=== PATIENT | male | born 1985 | race Caucasian/White ===

== ENCOUNTER 2024-03-04 08:53 | Inpatient (IN) | payer OTHER ==
[2024-03-04] MEDS ORDERED: MAG HYDROX/AL HYDROX/SIMETH 30 ML UNIT-DOSE CUP PO PRN (10:37)
[2024-03-04] MEDS ORDERED: NALOXONE (NARCAN) HCL 4 MG/0.1 ML SPRAY NS PRN (10:37)
[2024-03-04] MEDS ORDERED: LOPERAMIDE HCL 2 MG CAPSULE PO PRN (10:37)
[2024-03-04] MEDS ORDERED: ACETAMINOPHEN 325 MG TABLET (FP) PO PRN (10:37)
[2024-03-04] MEDS ORDERED: BISMUTH SUBSALICYLATE 262 MG/15 ML BTL PO PRN (10:37)
[2024-03-04] MEDS ORDERED: DICYCLOMINE HCL 10 MG CAPSULE PO PRN (10:37)
[2024-03-04] MEDS ORDERED: POLYETHYLENE GLYCOL (HEALTHYLAX) 3350 17 GM PACKET PO PRN (10:37)
[2024-03-04] MEDS ORDERED: BENZOCAINE/MENTHOL (CHLORASEPTIC ) LOZENGE MM PRN (10:37)
[2024-03-04] MEDS ORDERED: IBUPROFEN 400 MG TABLET (FP) PO PRN (10:37)
[2024-03-04] MEDS ORDERED: guaiFENesin 600 MG TABLET.ER (FP) PO PRN (10:37)
[2024-03-04] MEDS ORDERED: BENZONATATE 200 MG CAPSULE PO PRN (10:37)
[2024-03-04] MEDS ORDERED: ONDANSETRON *ODT* 4 MG TABLET SL PRN (10:37)
[2024-03-04] MEDS ORDERED: NICOTINE 7 MG/24 HOURS TOPICAL PATCH TD ONE (11:47)
[2024-03-04] MEDS ORDERED: PRENATAL VITAMINS W/ FOLIC ACID TABLET (FP) PO ONE (11:47)
[2024-03-04] MEDS: NICOTINE 7 MG/24 HOURS TOPICAL PATCH TD SCH (11:49)
[2024-03-04] MEDS: PRENATAL VITAMINS W/ FOLIC ACID TABLET (FP) PO SCH (11:49)
[2024-03-04] MEDS: methaDONE HCL 10 MG TABLET PO ONE (11:50)
[2024-03-04] MEDS: cloNIDine HCL 0.1 MG TABLET PO SCH (13:22)
[2024-03-04] MEDS: MELATONIN 5 MG TABLETS PO SCH (22:36)
[2024-03-04] MEDS: METHOCARBAMOL 500 MG TABLET PO PRN (22:36)
[2024-03-04] MEDS: hydrOXYzine PAMOATE 25 MG CAPSULE (FP) PO PRN (22:36)
[2024-03-04] MEDS: THIAMINE 100 MG TABLET PO SCH (22:36)
[2024-03-05] MEDS: methaDONE 40 MG, methaDONE 20 MG PO SCH (05:27)
[2024-03-05] MEDS ORDERED: methaDONE HCL 10 MG TABLET PO SCH (06:00)
[2024-03-05] MEDS ORDERED: methaDONE 40 MG, methaDONE 30 MG PO ONE (06:00)
[2024-03-05] MEDS: methaDONE HCL 10 MG TABLET PO ONE (09:27)
[2024-03-05] MEDS: NICOTINE 21 MG/24 HOURS TOPICAL PATCH TD SCH (09:27)
[2024-03-05] MEDS: IBUPROFEN 600 MG TABLET (FP) PO PRN (09:30)
[2024-03-05] MEDS ORDERED: methaDONE HCL 10 MG TABLET PO ONE (10:00)
[2024-03-05] MEDS: LIDOCAINE 4% PATCH TP SCH (10:58)
[2024-03-05 12:03] LABS: HEMATOCRIT 41.7 % (35.4-49); HEMOGLOBIN 14.1 GM/dL (11.7-16.9); MCH 29.5 pg (25.7-33.7); MCHC 33.8 g/dl (32.0-35.9); MEAN CELL VOLUME 87.2 fl (80-96); MEAN PLT VOLUME 9.8 fl (7.5-11.1); PLATELET COUNT 220 10^3/uL (134-434); RBC 4.78 M/mm3 (4.00-5.60); RDW 13.9 % (11.9-15.9); WHITE BLOOD COUNT 11.3 K/mm3 (4.0-10.0)
[2024-03-05 12:28] LABS: POTASSIUM 4.3 mmol/L (3.5-5.1)
[2024-03-05 12:30] LABS: CALCIUM 9.2 mg/dL (8.5-10.1)
[2024-03-05 12:31] LABS: ALBUMIN 3.7 g/dl (3.4-5.0); BLOOD UREA NITROGEN 15.6 mg/dL (7-18)
[2024-03-05 12:34] LABS: CREATININE 0.8 mg/dL (0.55-1.3)
[2024-03-05 12:36] LABS: BILIRUBIN,TOTAL 0.4 mg/dL (0.2-1); TOT PROT 6.6 g/dl (6.4-8.2)
[2024-03-05] MEDS: NICOTINE POLACRILEX 2 MG GUM BC PRN (13:20)
[2024-03-05] MEDS: SUVOREXANT 10 MG TABLET PO PRN (22:09)
[2024-03-05] MEDS: LIDOCAINE PATCH REMOVAL MC SCH (22:10)
[2024-03-06] MEDS ORDERED: cloNIDine HCL 0.1 MG TABLET PO PRN
[2024-03-06] MEDS: methaDONE HCL 10 MG TABLET PO ONE (09:58)
[2024-03-06] MEDS ORDERED: methaDONE HCL 10 MG TABLET PO ONE (10:00)
[2024-03-06] MEDS: MAGNESIUM HYDROX 2400MG/30ML ORAL SUSPENSION 30 ML CUP PO PRN (12:17)
[2024-03-07] MEDS: methaDONE HCL 10 MG TABLET PO ONE (09:49)
[2024-03-07] MEDS ORDERED: methaDONE HCL 40 MG DISPERSABLE TABLET PO ONE (10:00)
[2024-03-07] MEDS ORDERED: LORazepam 2 MG/ML SDV VIAL ONE (22:13)
[2024-03-07] MEDS: LORazepam 2 MG/ML SDV VIAL IM ONE (22:30)
[2024-03-08 04:54] VITALS: BMI 32.3
[2024-03-08] MEDS: methaDONE HCL 40 MG DISPERSABLE TABLET PO ONE (09:30)
[2024-03-08] MEDS ORDERED: methaDONE 40 MG, methaDONE 10 MG PO ONE (10:00)
[2024-03-08] MEDS ORDERED: NALOXONE (NYS OPIOID OVERDOSE PROGRAM) 4 MG/0.1 ML SPRAY NS SCH (14:45)
[2024-03-09 05:54] VITALS: RESP 18
[2024-03-09] MEDS: methaDONE 40 MG, methaDONE 10 MG PO ONE (09:18)
[2024-03-09 10:30] VITALS: BP 143/89; PULSE 61; TEMP 96.9
== END 2024-03-09 10:07 | disposition home or self-care (01) | DRG 773 ==
LOC: YASAS 08:53 → Y6N 12:12
PROVIDERS: ADMIT Allergy & Immunology; ATTEND Surgery
PROC: HZ2ZZZZ Detoxification Services for Substance Abuse Treatment (ICD-10-PCS; principal; 2024-03-04)
DX: F11.23 Opioid dependence with withdrawal (principal); F14.20 Cocaine dependence, uncomplicated; F17.210 Nicotine dependence, cigarettes, uncomplicated; F19.282 Other psychoactive substance dependence with psychoactive substance-induced sleep disorder; F19.280 Other psychoactive substance dependence with psychoactive substance-induced anxiety disorder; F19.24 Other psychoactive substance dependence with psychoactive substance-induced mood disorder; J45.909 Unspecified asthma, uncomplicated; M54.50 Low back pain, unspecified; G89.29 Other chronic pain; Z62.810 Personal history of physical and sexual abuse in childhood; Z88.0 Allergy status to penicillin
CPT/HCPCS: 36415; 80053; 80305; 80307; 82962; 85027; 86780; 93005; 93010